=== PATIENT | male | born 1980 | race Caucasian/White ===

== ENCOUNTER 2025-02-24 13:41 | Emergency (ER) | payer MEDICAID ==
[~2025-02-24] VITALS: Ht 177.8 cm; Wt 109.0 kg
[2025-02-24 13:47] VITALS: BP 136/94; PULSE 79; RESP 18; TEMP 37.3; O2SAT 100
[2025-02-24] MEDS ORDERED: IBUP-2029 MT (17:07)
[2025-02-24] MEDS: KETOROLAC 30MG/ML VIAL IM ONE (17:11)
[2025-02-24] MEDS: ACETAMINOPHEN 500MG TABLET PO ONE (17:11)
== END 2025-02-24 17:25 | disposition home or self-care (01) ==
LOC: ER 13:41
DX: M79.10 Myalgia, unspecified site (principal); F15.10 Other stimulant abuse, uncomplicated
CPT/HCPCS: 99283; 96372; J1885